=== PATIENT | male | born 1965 | race Caucasian/White ===

== ENCOUNTER 2024-02-16 10:44 | Inpatient (IN) | payer OTHER ==
[2024-02-16] MEDS ORDERED: HEPARIN SODIUM 1,000 UN/ML (10ML VL) IV PRN (10:52)
[2024-02-16] MEDS: NITROGLYCERIN SL TABS 0.4 MG TAB SUBLINGUAL STA ×3 (10:55→11:11)
[2024-02-16] MEDS: ASPIRIN 81 MG PO STA (10:55)
--- NOTE | 2024-02-16 10:57 | ED ---
General Adult HPI - General Chief complaint: Chest Pain Stated complaint: Chest Pain Time Seen by Provider: 02/16/24 10:47 Source: patient, EMS, RN notes reviewed, old records reviewed (EMS EKG) Mode of arrival: EMS Limitations: no limitations - History of Present Illness Initial comments: Patient is a pleasant 58-year-old male present to the emergency department with concerns for chest discomfort. Patient arrives via EMS. Patient states discomfort started around half an hour prior to arrival during emotional upset. Discomfort feels like heaviness that is severe. Discomfort improved to 4/10 following 1 nitroglycerin. Patient feels sweaty and has associated dyspnea. No nausea. Patient does have history of similar symptoms previously associated with heart attack and CABG. - Related Data Home Medications Medication Instructions Recorded Confirmed No Known Home Medications 02/16/24 02/16/24 Allergies Allergy/AdvReac Type Severity Reaction Status Date / Time No Known Allergies Allergy Verified 02/16/24 11:03 Review of Systems ROS Statement: Those systems with pertinent positive or pertinent negative responses have been documented in the HPI. ROS Other: All systems not noted in ROS Statement are negative. Constitutional: Denies: fever Eyes: Denies: eye pain ENT: Denies: ear pain Respiratory: Reports: as per HPI, dyspnea Cardiovascular: Reports: as per HPI, chest pain Musculoskeletal: Denies: back pain Past Medical History Past Medical History: Hyperlipidemia, Hypertension, Myocardial Infarction ([place]) Additional Past Surgical History / Comment(s): Quad bipass in 2008 Past Psychological History: No Psychological Hx Reported Smoking Status: Never smoker Past Alcohol Use History: None Reported Past Drug Use History: Marijuana General Exam Limitations: no limitations General appearance: alert Head exam: Present: normocephalic Eye exam: Present: normal appearance Neck exam: Present: normal inspection Respiratory exam: Present: normal lung sounds bilaterally. Absent: chest wall tenderness Cardiovascular Exam: Present: regular rate, normal rhythm Expanded Peripheral pulses: 2+: Radial (R), Radial (L), Posterior Tibialis (R), Posterior Tibialis (L) GI/Abdominal exam: Present: soft. Absent: tenderness Extremities exam: Present: normal inspection Neurological exam: Present: alert Psychiatric exam: Present: normal affect, normal mood Skin exam: Present: diaphoretic Course Vital Signs 02/16/24 02/16/24 02/16/24 10:46 11:06 11:07 Temperature 97.9 F Pulse Rate 90 92 Pulse Rate [ 88 Wheel Buffer ] Respiratory 22 18 Rate Blood Pressure 154/104 144/99 O2 Sat by Pulse 95 92 L Oximetry - Reevaluation(s) Reevaluation #1: 02/16/24 11:09 Patient reevaluated. Discomfort 01/25. Patient has had 3 nitroglycerin now. Paste will be applied. EKG Findings - EKG Results: EKG: interpreted by ERMD (Anterior lateral ST elevation), sinus rhythm, normal axis, normal QRS EKG shows: tachycardia Medical Decision Making - Medical Decision Making Was pt. sent in by a medical professional or institution (, PA, ENVIRONMENTAL COMMUNICATIONS SPECIALIST, urgent care, hospital, or detention...) When possible be specific @ -No Did you speak to anyone other than the patient for history (EMS, parent, family, police, friend...)? What history was obtained from this source @ -EMS provides history of transport including nitroglycerin Did you review nursing and triage notes (agree or disagree)? Why? @ -I reviewed and agree with nursing and triage notes Were old charts reviewed (outside hosp., previous admission, EMS record, old EKG, old radiological studies, urgent care reports/EKG's, detention records)? Report findings @ -EKG reviewed by EMS with concern for ST elevation Differential Diagnosis (chest pain, altered mental status, abdominal pain women, abdominal pain men, vaginal bleeding, weakness, fever, dyspnea, syncope, headache, dizziness, GI bleed, back pain, seizure, CVA, palpatations, mental health, musculoskeletal)? @ -Differential Chest Pain: Stable Angina, Unstable Angina, STEMI, NSTEMI Aortic Dissection, Pneumothorax, Musculoskeletal, Esophageal Spasm GERD, Cholecystitis, Pancreatitis, Zoster, this is not meant to be an all-inclusive list. EKG interpreted by me (3pts min.). @ -As above X-rays interpreted by me (1pt min.). @ -Chest x-ray interpreted by me as no acute abnormality. Postsurgical change CT interpreted by me (1pt min.). @ -None done U/S interpreted by me (1pt. min.). @ -None done What testing was considered but not performed or refused? (CT, X-rays, U/S, labs)? Why? @ -None What meds were considered but not given or refused? Why? @ -None Did you discuss the management of the patient with other professionals (professionals i.e. DrGoldy, PA, ENVIRONMENTAL COMMUNICATIONS SPECIALIST, lab, RT, psych nurse, drug abuse social worker, automatic spooler operator, teacher, compliance review officer, major case detective)? Give summary @ -Case discussed with Dr. Sky who will take patient to the [facility]. Case also discussed with Dr. hoffman who will admit covering hospital call Was smoking cessation discussed for >3mins.? @ -No Was critical care preformed (if so, how long)? @ -31 minutes critical care Were there social determinants of health that impacted care today? How? (Homelessness, low income, unemployed, alcoholism, drug addiction, transportation, low edu. Level, literacy, decrease access to med. care, [facility], rehab)? @ -No Was there de-escalation of care discussed even if they declined (Discuss DNR or withdrawal of care, Hospice)? DNR status @ -No What co-morbidities impacted this encounter? (DM, HTN, Smoking, COPD, CAD, Cancer, CVA, ARF, Chemo, Hep., AIDS, mental health diagnosis, sleep apnea, morb id obesity)? @ -Underlying coronary artery disease, hypertension and hypercholesterolemia Was patient admitted / discharged? Hospital course, mention meds given and route, prescriptions, significant lab abnormalities, going to OR and other pertinent info. @ -Patient improved with nitroglycerin following chest pain similar to previous [place]. Patient will be admitted. Patient to go to [facility]. Basic admission orders written. Heparin started. Undiagnosed new problem with uncertain prognosis? @ -No Drug Therapy requiring intensive monitoring for toxicity (Heparin, Nitro, Insulin, Cardizem)? @ -Heparin drip Were any procedures done? @ -No Diagnosis/symptom? @ -STEMI Acute, or Chronic, or Acute on Chronic? @ -Acute Uncomplicated (without systemic symptoms) or Complicated (systemic symptoms)? @ -Default Side effects of treatment? @ -No Exacerbation, Progression, or Severe Exacerbation? @ -No Poses a threat to life or bodily function? How? (Chest pain, [place], [place], pneumonia, PE, COPD, DKA, ARF, appy, cholecystitis, CVA, Diverticulitis, Homicidal, Suicidal, threat to staff... and all critical care pts) @ -No - Lab Data Result diagrams: 02/16/24 10:50 Lab Results 02/16/24 Range/Units 10:50 WBC 11.6 H (3.8-10.6) k/uL RBC 5.42 (4.30-5.90) m/uL Hgb 17.3 (13.0-17.5) gm/dL Hct 51.9 (39.0-53.0) % MCV 95.6 (80.0-100.0) fL MCH 32.0 (25.0-35.0) pg MCHC 33.4 (31.0-37.0) g/dL RDW 12.5 (11.5-15.5) % Plt Count 341 (150-450) k/uL MPV 8.1 Neutrophils % 62 % Lymphocytes % 30 % Monocytes % 5 % Eosinophils % 1 % Basophils % 1 % Neutrophils # 7.2 (1.3-7.7) k/uL Lymphocytes # 3.5 (1.0-4.8) k/uL Monocytes # 0.6 (0-1.0) k/uL Eosinophils # 0.1 (0-0.7) k/uL Basophils # 0.1 (0-0.2) k/uL Critical Care Time Critical Care Time: Yes Total Critical Care Time: 31 Disposition Clinical Impression: ST elevation myocardial infarction (STEMI) Disposition: ADMITTED IP TO THIS HOSP Condition: Critical Is patient prescribed a controlled substance at d/c from ED?: No Time of Disposition: 10:55
[2024-02-16] MEDS: HEPARIN SODIUM 1,000 UN/ML (10ML VL) IV ONE (10:58)
[2024-02-16] MEDS ORDERED: NITROGLYCERIN SL TABS 0.4 MG TAB SUBLINGUAL PRN (10:59)
[2024-02-16] MEDS: HEPARIN SOD,PORK IN 0.45% NACL 25,000 UNIT in 0.45% NACL 1 250ML.BAG IV SCH (11:01)
--- NOTE | 2024-02-16 11:08 | P.CRDCN ---
History of Present Illness Consult date: 02/16/24 History of present illness: HISTORY OF PRESENTING ILLNESS 58-year-old male with past medical history of CAD s/p CABG in 2009 done in [place] recently moved to [place]. For last 5 years he has not seen any physicians has not been on any medications. For last 1 week patient has been feeling under the weather, slightly fatigued and Low in energy. This morning he started having substernal chest pressure-like symptoms for which EMS was activated. EMS performed ECG which was showed ST elevations in anterolateral leads, sinus rhythm. Patient received sublingual nitroglycerin x 2 and 325 mg of aspirin which helped his symptoms and brought his chest pain down. On evaluation he is not showing signs of pulmonary congestion, no signs of fluid overload with normal JVD and no swelling in bilateral lower extremity. He is warm to touch. Systolic blood pressure 160s, diastolics 80s to 90s, heart rates 90s, sinus rhythm Patient denies any prior history of stroke, bleeding diathesis cancers or radiation therapy. He has not had any abdominal or chest surgeries other than bypass. He denies any allergy to contrast dye REVIEW OF SYSTEMS 14 point review of system is negative except what is mentioned above in HPI. PHYSICAL EXAMINATION Vital signs reviewed. Neck: Brisk carotid upstroke, no jugular venous distention. Lungs: Clear to auscultation. Heart: Regular rate and rhythm, S1-S2, no S3, no murmur or rub. Abdomen: Soft nontender, positive bowel sounds. Extremities: No edema, intact distal pulses. Neuro: Alert, oritented, no focal deficits. Detailed neuro exam was not performed. ASSESSMENT Anterolateral STEMI Apical and anteroapical wall hypokinesia CAD s/p CABG in 2008, [place]. Anatomy unknown, patient reports four-vessel bypass Noncompliant to medications Homeless, poor access to medical care Obesity Marijuana smoker Essential hypertension PLAN Plan for emergent cardiac catheterization procedure. Concerns of cardiogenic shock at this time. Bedside echo shows an EF of 45 to 50%, apical and anteroapical wall hypokinesia. Not sure if it is old or new. Patient is noted to be hypertensive at this time. He was not taking any cardiac medications including aspirin for last 5 years. Ravindra Sky MD, FACC, RPVI Thank you for allowing [facility] to participate in this patient's care. Feel free to reach out in case of any followup questions. Past Medical History Past Medical History: Hyperlipidemia, Hypertension, Myocardial Infarction ([place]) Additional Past Surgical History / Comment(s): Quad bipass in 2008 Past Psychological History: No Psychological Hx Reported Smoking Status: Never smoker Past Alcohol Use History: None Reported Past Drug Use History: Marijuana Medications and Allergies Home Medications Medication Instructions Recorded Confirmed Type No Known Home Medications 02/16/24 02/16/24 History Allergies Allergy/AdvReac Type Severity Reaction Status Date / Time No Known Allergies Allergy Verified 02/16/24 11:03 Physical Exam Vitals: Vital Signs Temp Pulse Resp BP Pulse Ox 02/16/24 10:46 97.9 F 90 22 154/104 95 Intake and Output 02/15/24 02/16/24 02/16/24 22:59 06:59 14:59 Other: Weight 113.5 kg Results Current Medications Generic Name Dose Route Start Last Admin Trade Name Freq PRN Reason Stop Dose Admin Aspirin 325 mg 02/17/24 09:00 Aspirin 325 Mg Tab PO DAILY [facility] Heparin Sodium (Porcine) 0 unit 02/16/24 10:52 Heparin Sodium 1,000 Un/Ml (10ml Vl) IV PER PROTOCOL PRN Low PTT Protocol Heparin Sodium/Sodium Chloride 250 mls @ 10 mls/hr 02/16/24 11:00 02/16/24 11:01 25,000 unit/ Sodium Chloride IV 8.8105 units/kg/hr .Q24H JABARI 10 mls/hr Administration Protocol 8.8105 UNITS/KG/HR Nitroglycerin 0.4 mg 02/16/24 10:59 Nitroglycerin Sl Tabs 0.4 Mg Tab SUBLINGUAL Q5M PRN Chest Pain Intake and Output 02/15/24 02/16/24 02/16/24 22:59 06:59 14:59 Other: Weight 113.5 kg Patient Weight 02/17/24 06:59 Weight 113.5 kg
[2024-02-16] MEDS: NITROGLYCERIN OINT 1 INCH/GM PACKET TOPICAL STA ×2 (11:11→11:13)
[2024-02-16 11:12] LABS: Basophils # (A) 0.1 k/uL (0-0.2); Basophils % (A) 1 %; Eosinophils # (A) 0.1 k/uL (0-0.7); Eosinophils % (A) 1 %; HCT 51.9 % (39.0-53.0); HGB 17.3 gm/dL (13.0-17.5); Lymphocytes # (A) 3.5 k/uL (1.0-4.8); Lymphocytes % (A) 30 %; MCHC 33.4 g/dL (31.0-37.0); MCV 95.6 fL (80.0-100.0); Mean Platelet Volume 8.1; Monocytes # (A) 0.6 k/uL (0-1.0); Monocytes % (A) 5 %; Neutrophils # (A) 7.2 k/uL (1.3-7.7); Neutrophils % (A) 62 %; Platelet Count 341 k/uL (150-450); RBC 5.42 m/uL (4.30-5.90); RDW 12.5 % (11.5-15.5); WBC 11.6 k/uL (3.8-10.6)
[2024-02-16 11:36] LABS: INR 0.9 (<1.2)
[2024-02-16] MEDS ORDERED: fentaNYL (PF) 50 MCG/ML 2 ML AMP ONE (11:36)
[2024-02-16] MEDS: LIDOCAINE 1% INJ 10MG/ML (20 ML MDV) SQ ONE ×2 (11:36→11:42)
[2024-02-16 11:37] LABS: Partial Thromboplastin Time 23.4 sec (22.0-30.0); Prothrombin Time 10.4 sec (10.0-12.5)
--- NOTE | 2024-02-16 11:39 | XR ---
EXAMINATION TYPE: XR chest 1V portable DATE OF EXAM: 02/16/2024 COMPARISON: None INDICATION: Chest pain TECHNIQUE: Single frontal view of the chest is obtained. FINDINGS: The heart size is normal. The pulmonary vasculature is normal. The lungs are clear. Sternotomy wires are in the midline. IMPRESSION: 1. No acute pulmonary process.
[2024-02-16] MEDS: MIDAZOLAM 2 MG/2 ML VIAL IVP ONE ×2 (11:40→12:55)
[2024-02-16] MEDS: fentaNYL (PF) 50 MCG/ML 2 ML AMP IVP ONE ×2 (11:40→12:30)
[2024-02-16 11:47] LABS: ALT 64 U/L (4-49); AST 48 U/L (17-59); African American GFR (CKD) 81 (>60 ml/min/1.73 sqM); Albumin 4.7 g/dL (3.5-5.0); Alkaline Phosphatase 113 U/L (38-126); Anion Gap 17 mmol/L; Blood Urea Nitrogen 18 mg/dL (9-20); Calcium 9.4 mg/dL (8.4-10.2); Carbon Dioxide 13 mmol/L (22-30); Chloride 108 mmol/L (98-107); Glucose 153 mg/dL (74-99); Magnesium 1.9 mg/dL (1.6-2.3); Non-African American GFR(CKD) 70 (>60 ml/min/1.73 sqM); Potassium 3.8 mmol/L (3.5-5.1); Sodium 138 mmol/L (137-145); Total Bilirubin 1.5 mg/dL (0.2-1.3); Total Protein 7.9 g/dL (6.3-8.2)
[2024-02-16] MEDS ORDERED: HEPARIN SODIUM 1,000 UN/ML (10ML VL) ONE (11:50)
[2024-02-16] MEDS: HEPARIN SODIUM 1,000 UN/ML (10ML VL) IVP ONE ×3 (11:52→12:57)
[2024-02-16] MEDS ORDERED: TICAGRELOR 90 MG TAB ONE (11:59)
[2024-02-16] MEDS: TICAGRELOR 90 MG TAB PO ONE (12:05)
[2024-02-16] MEDS: TIROFIBAN 12.5MG-250ML NS 250 ML IV ONE ×2 (12:15→12:25)
[2024-02-16] MEDS: DEXTROSE 5% IN WATER 100 ML with AMIODARONE 150 MG IV ONE (12:15)
[2024-02-16] MEDS: niCARdipine Syringe (1,000 mcg/10 mL) INTRACORON ONE ×4 (12:28→12:36)
[2024-02-16] MEDS: SODIUM CHLORIDE 0.9% 1,000 ML in EMPTY BAG 1 BAG IV SCH (12:30)
[2024-02-16] MEDS: IV FLUID CONTINUATION 700 ML IV ONE (12:35)
[2024-02-16] MEDS: SODIUM CHLORIDE 0.9% 1,000 ML IV ONE (12:50)
[2024-02-16] MEDS ORDERED: MAG HYDROX/AL HYDROX/SIMETH 30 ML CUP PO PRN (13:17)
[2024-02-16] MEDS ORDERED: RX INFO: IV CONTRAST WAS GIVEN 1 EACH MISC MISCELLANE PRN (13:17)
[2024-02-16] MEDS ORDERED: ATROPINE SULFATE 0.1 MG/ML 10ML SYRINGE IV PRN (13:17)
--- NOTE | 2024-02-16 13:17 | P.PRCINT ---
Percutaneous Coronary Int. - Percutaneous Coronary Intervention Percutaneous Coronary Intervention: PROCEDURES PERFORMED: SVG to diagonal, SMITH to LAD angiography, PCI SVG to diagonal with a 3.25 x 23mm Xience IFTIKHAR at the mid and 3.5 x 12mm Xience IFTIKHAR at the proximal portion, IVUS SVG to diagonal, Penumbra aspiration thrombectomy SVG to diagonal INDICATION: STEMI CONSENT:I have discussed the risks, benefits and alternative therapies for the above-mentioned procedure and for both sedation/analgesia as well as necessary blood product administration, if indicated, as they pertain to this patient. The patient has indicated understanding and acceptance of the risks and procedures discussed. PROCEDURE: After the risks, benefits and alternatives of the above mentioned procedure explained in detail with the patient, informed consent was obtained. Patient was taken to the catheterization lab and prepped and draped in usual fashion. A 6-Austrian sheath had previously been placed in the right femoral artery. Left coronary angiography was subselective and appeared to be occluded and right coronary angiography showed diffuse disease with occluded SVG to PDA. The SVG to diagonal had dye hang up and appeared to be the culprit vessel. The decision was made to perform PCI of the SVG to diagonal branch. A 6-Austrian AL 0.75 guide was used think each the SVG. A 0.014 BMW wire was advanced in the distal SVG. Penumbra aspiration thrombectomy was performed. This did improve some antegrade flow and therefore a spider 4.0 distal embolic protection device was deployed in the distal vessel. Next balloon angioplasty was performed with a 3.0 x 12 mm balloon. Next a 3.25 x 23 mm Xience IFTIKHAR was placed in the mid SVG to diagonal. There was more proximal disease which may been the culprit just prior to an aneurysmal vein valve. The decision was made to perform stenting of this area as well. A 3.5 x 12 mm Xience IFTIKHAR was placed. There was no reflow. This was treated with Aggrastat as well as intravascular nicardipine. The spider embolic protection device was removed with some thrombus noted. MAN was performed of the proximal portion of the stent which appeared well expanded however unable to advance more distally. Final angiograms showed improvement in flow to JOSHUA 2-3 and patient not having any chest pain and therefore remainder of thrombus, no reflow felt best treated medically with Aggrastat. Preintervention there was 100% stenosis and JOSHUA 0 flow and postintervention there was less than 10% stenosis with JOSHUA 2 flow. There was likely another SVG to OM however given contrast threshold this was not performed and aortogram was not performed. A SMITH to LAD angiogram was performed which showed diffuse disease more distally of the LAD. The right femoral angiogram showed adequate anatomy and an Angioseal was placed with hemostasis achieved. The patient tolerated the procedure well. Patient was transported back to the post catheterization holding area in stable condition. Conscious Sedation: Patient was monitored under the direct supervision of myself for conscious sedation using Versed and fentanyl for a total duration of 56 minutes HEMODYNAMICS: Ao: 158/100 SELECTIVE CORONARY ARTERIOGRAPHY: LEFT MAIN: subselevticely imaged however appears occluded LEFT ANTERIOR DESCENDING CORONARY ARTERY: subselevticely imaged however appears occluded LEFT CIRCUMFLEX CORONARY ARTERY: subselevticely imaged however appears occluded RIGHT CORONARY ARTERY: The RCA was imaged during diagnostic portion with diffuse diseaseof the entire RCA including 90% mid, proximal and distal stenosis. SVG to PDA: From diagnostic imaging occluded SVG to diagonal: 100% stenosis SMITH to LAD: Patent with mid to distal LAD 90% stenosis FINAL IMPRESSION: 1. [place] CAD as described above with what appears to be 100% left main stenosis and RCA 90% stenosis 2. Occluded SVG to PDA, 100% SVG to diagonal which was the culprit vessel, patent SMITH to LAD however more distal 90% LAD stenosis. SVG to OM not imaged 3. Status post PCI SVG to diagonal with a 3.25 x 23mm Xience IFTIKHAR at the mid and 3.5 x 12mm Xience IFTIKHAR at the proximal portion PLAN: 1. Aggressive risk factor modification per most recent ACC/AHA guidelines. 2. Continue dual antiplatelets with aspirin and Brillinta for 12 months 3. If more angina consider repeat angiogram or CTA to further assess any patency of SVG to OM or other grafts. Obtain prior operative report 4. RCA with diffuse disease. Patient will need stenting of the entire RCA and only consider if patient is compliant with significant history of noncompliance for last 5 years.
[2024-02-16 13:22] LABS: Glucose,Whole Blood 144 mg/dL (70-110)
[2024-02-16] MEDS: IOPAMIDOL-370 100ML BTL INJ ONE ×2 (13:37)
[2024-02-16] MEDS: lisinopriL 10 MG TAB PO SCH (14:19)
[2024-02-16] MEDS: METOPROLOL TARTRATE 25 MG TAB PO SCH (14:19)
[2024-02-16] MEDS ORDERED: TEMAZEPAM 15 MG CAP PO PRN (14:51)
[2024-02-16] MEDS ORDERED: hydrALAZINE HCL 20 MG/ML 1 ML VIAL IVP PRN (14:51)
[2024-02-16] MEDS ORDERED: ACETAMINOPHEN TAB 500 MG TAB PO PRN (14:51)
[2024-02-16 16:45] LABS: Appearance,Urine Clear (Clear); Bilirubin,Urine Negative (Negative); Blood,Urine Negative (Negative); Color,Urine Colorless; Glucose,Urine (UA) Negative (Negative); Ketones,Urine 1+ (Negative); Leukocyte Esterase,Urine Negative (Negative); Nitrite,Urine Negative (Negative); Protein,Urine Negative (Negative); Specific Gravity,Urine 1.022 (1.001-1.035); Urobilinogen,Urine <2.0 mg/dL (<2.0)
[2024-02-16] MEDS: amLODIPine 5 MG TAB PO SCH (18:05)
[2024-02-16] MEDS: ONDANSETRON 4 MG/2 ML VIAL IVP PRN (18:18)
[2024-02-16] MEDS: METOCLOPRAMIDE 5 MG/ML 2 ML VIAL IVP STA (19:34)
--- NOTE | 2024-02-16 19:53 | P.CARDCATH ---
Date of Procedure: 02/16/24 Description of Procedure: DIAGNOSTIC CORONARY ANGIOGRAPHY and LEFT HEART CATH REPORT PROCEDURES PERFORMED: Left heart catheterization Selective coronary angiography Bypass graft injection Moderate conscious sedation 24 mins Right common femoral access Right common femoral arteriogram INDICATION: Anterolateral STEMI 58-year-old prior history of CABG 2009 in [place], not following up with physician in last 5 years, not on any medications not even aspirin, history of type 2 diabetes, hypertension dyslipidemia CAD, marijuana smoking. He presented to the hospital because of substernal chest pressure symptoms that started today around 10 AM. His ECG showed anterolateral ST elevations with ST elevation extensions in 1 and aVL. Rhythm was sinus rhythm CONSENT: I have discussed the risks, benefits and alternative therapies for the above-mentioned procedure, sedation/analgesia and necessary blood product administration (if indicated, as they pertain to this patient). The patient has indicated understanding and acceptance of the risks and procedures discussed. Conscious Sedation: Patient's ECG, heart rate, blood pressure, pulse oximetry was monitored throughout the duration of procedure under the direct supervision. 2 mg Versed and 502 mg Fentanyl were used for induction of moderate conscious sedation. Total duration of 24 minutes. PROCEDURE:After the risks, benefits and alternatives of the above mentioned procedure explained in detail with the patient, informed consent was obtained. Patient was taken to the catheterization lab and prepped and draped in usual sterile fashion. Ultrasound was used to identify the right common femoral artery. 1% lidocaine was infiltrated over the right common femoral artery. Using ultrasound arterial access was obtained using micropuncture needle. A 6-Divehi sheath was placed in the right coomon femoral artery using modified Seldinger technique. J tipped wire was advanced under fluoroscopic guidance. The J-wire could not be advanced in the ascending aorta. The J-tip wire was removed and a Glidewire was used which was advanced under fluoroscopy to the ascending aorta. Over the Glidewire JL 4 diagnostic catheter was advanced to the aortic root. This catheter work could not opacify or engage the left coronary ostium. This catheter was exchanged for a JL 4.5 diagnostic catheter. This catheter could not selectively engage the left coronary ostium. Left coronary cusp angiogram was performed which did not show any opacification of the left main suggestive of MAP MAKER of left main ostium. The catheter was exchanged over the wire to JR4 diagnostic catheter. The catheter was manipulated to selectively engage the right coronary ostium. Right coronary angiogram was performed in different angiographic projections. The catheter was disengaged to selectively engage the right vein graft to PDA. Injection showed occlusion of the right vein graft. The catheter was disengaged and manipulated to selectively engage the vein graft to diagonal artery which was aneurysmally dilated in proximal segment and 100% occluded with thrombus. Based on the ECG findings with anterolateral STEMI, vein graft to diagonal seems to the culprit vessel. Decision was made to proceed for emergent vein graft to diagonal prevention with Dr. Arguello. JR4 diagnostic catheter was withdrawn over the wire and the J-wire was left in the aortic root. Hemodynamics Aortic pressure 154 over 74 mmHg SELECTIVE CORONARY ARTERIOGRAPHY: LEFT MAIN: Did not opacify on left coronary cusp injection, likely suggestive of left main MAP MAKER. RIGHT CORONARY ARTERY: Dominant vessel. Diffusely ectatic and diffusely diseased vessel approximately 6 mm in diameter in ectatic segments. Proximal RCA has 85 to 90% disease. Mid RCA has 80 to 90% stenosis. Distal RCA just prior to bifurcation into PDA and PL branch has 40 to 50% tubular disease. 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 Faint collaterals from PDA to LAD are seen. CABG grafts SVG to PDA, 100% occluded with stump seen SVG to diagonal, 100% occluded with dye hanging in proximal segment. Mild aneurysmal dilatation of proximal vein graft. This appears to be the culprit vessel. SVG to OM could not be identified IMPRESSION: 100% occluded SVG to diagonal with aneurysmal dilatation of proximal segment with dye hanging, likely culprit vessel 100% occluded SVG to PDA Diffusely ectatic RCA, severe proximal RCA disease Suspect occluded left main PLAN: Plan for emergent PCI of SVG to diagonal SMITH angiogram will be performed after intervention. Performing Physician Ravindra Sky MD [facility], RPVI Thank you for allowing [facility] to participate in this patient's care. Feel free to reach out in case of any followup questions. 2
[2024-02-16 20:04] LABS: HCT 47.6 % (39.0-53.0); HGB 16.3 gm/dL (13.0-17.5); MCH 32.6 pg (25.0-35.0); MCHC 34.3 g/dL (31.0-37.0); MCV 95.1 fL (80.0-100.0); Mean Platelet Volume 7.8; Platelet Count 282 k/uL (150-450); RBC 5.01 m/uL (4.30-5.90); RDW 12.4 % (11.5-15.5); WBC 15.7 k/uL (3.8-10.6)
[2024-02-16] MEDS: TICAGRELOR 90 MG TAB PO SCH (20:44)
[2024-02-16] MEDS: ATORVASTATIN 80 MG TAB PO SCH (20:44)
[2024-02-16] MEDS: PANTOPRAZOLE 40 MG/10 ML VIAL IVP SCH (20:44)
[2024-02-16] MEDS: ZOLPIDEM 5 MG TAB PO PRN (20:48)
--- NOTE | 2024-02-16 21:35 | HP ---
HISTORY AND PHYSICAL CHIEF COMPLAINT: Chest pain. HISTORY OF PRESENT ILLNESS: This is a 58-year-old gentleman with a past medical history of myocardial infarction, hypertension, hyperlipidemia, who is noncompliant because of lack of job and homelessness. Currently, he is complaining of severe chest pain in the anterior part of the chest. The patient came to [facility]. Troponin is normal, but however, the patient had extensive ST-T changes in the anterior leads. The patient underwent cardiac catheterization and stenting of the multiple vessels including SVG to PDA and SVG to diagonal and SMITH to LAD. The patient is admitted for further evaluation and treatment. There is no history of any fever, rigors, or chills. PAST MEDICAL HISTORY: History of CAD, CABG, hypertension, hyperlipidemia. Rest of the chart and rest of the history is reviewed. HOME MEDICATIONS: None. ALLERGIES: None. FAMILY HISTORY: No history of heart disease or strokes in the family. SOCIAL HISTORY: History of THC. REVIEW OF SYSTEMS: A 14-point review is negative except as mentioned earlier. PHYSICAL EXAMINATION: VITAL SIGNS: Pulse is 86, blood pressure 144/99, respirations 19. HEENT: Conjunctivae normal. NECK: No JVD. CARDIOVASCULAR: S1, S2 muffled. RESPIRATIONS: Breath sounds diminished at the bases. No rhonchi. No crackles. ABDOMEN: Soft, nontender. LEGS: No edema. NERVOUS SYSTEM: Nonfocal. SKIN: No ulcer, rash, bleeding. JOINTS: No active deforming arthropathy. LABORATORY DATA: CO2 is 13. Bilirubin is 1.5. ASSESSMENT: 1. Acute [id number] elevation myocardial infarction, status post cardiac arrest and stenting of the multivessel. 2. History of coronary artery disease, cerebrovascular accident. 3. Hypertension. 4. Hyperlipidemia. 5. History of noncompliance. RECOMMENDATIONS AND DISCUSSION: This is a 58-year-old gentleman, who presented after acute myocardial infarction. At this time, I would recommend to continue current medications. Continue with antiplatelet agents. Continue with Lipitor. Continue with beta blockers. We will monitor the patient closely and we will consult Social Work for the complaint situation. Otherwise, prognosis guarded. Further recommendations to follow. See orders for further details. Closely follow with Cardiology. The patient will be monitored in ICU. MMODL / IJN: [id number] /
[2024-02-17] MEDS: ALPRAZolam 0.25 MG TAB PO PRN (01:03)
[2024-02-17 04:01] LABS: Basophils % (A) 0 %; Eosinophils % (A) 0 %; HCT 48.3 % (39.0-53.0); HGB 16.3 gm/dL (13.0-17.5); Lymphocytes # (A) 1.8 k/uL (1.0-4.8); Lymphocytes % (A) 13 %; MCHC 33.7 g/dL (31.0-37.0); MCV 94.8 fL (80.0-100.0); Mean Platelet Volume 8.2; Monocytes # (A) 0.8 k/uL (0-1.0); Monocytes % (A) 5 %; Neutrophils # (A) 11.8 k/uL (1.3-7.7); Neutrophils % (A) 81 %; Platelet Count 302 k/uL (150-450); RBC 5.09 m/uL (4.30-5.90); RDW 12.9 % (11.5-15.5); WBC 14.6 k/uL (3.8-10.6)
[2024-02-17 04:18] LABS: African American GFR (CKD) >90 (>60 ml/min/1.73 sqM); Anion Gap 11 mmol/L; Blood Urea Nitrogen 15 mg/dL (9-20); Calcium 9.2 mg/dL (8.4-10.2); Carbon Dioxide 18 mmol/L (22-30); Chloride 109 mmol/L (98-107); Glucose 116 mg/dL (74-99); Non-African American GFR(CKD) 80 (>60 ml/min/1.73 sqM); Potassium 3.9 mmol/L (3.5-5.1); Sodium 138 mmol/L (137-145)
[2024-02-17] MEDS ORDERED: PANTOPRAZOLE 40 MG TABLET PO SCH (07:30)
[2024-02-17] MEDS: ASPIRIN 81 MG PO SCH (08:32)
[2024-02-17] MEDS: lisinopriL 20 MG TAB PO SCH (08:32)
[2024-02-17] MEDS ORDERED: ASPIRIN 325 MG TAB PO SCH (09:00)
[2024-02-17] MEDS: ISOSORBIDE MONONITRATE ER 30 MG TAB.ER.24H PO SCH (10:37)
[2024-02-17 12:02] VITALS: BMI 35.6
[2024-02-17 12:10] LABS: Chol/HDL Ratio 6.65 Ratio; LDL Cholesterol,Calculated 164.6 mg/dL (0.0-131.0)
--- NOTE | 2024-02-17 13:34 | CA ---
Transthoracic Echo Report Name: Duong Lay Age: 58 Gender: M : 1965 Exam Date: 02/17/2024 07:49 Exam Location: [place] [facility] Ht (in): 60 Wt (lb): 250 Ordering Physician: Ravindra Sky MD ([id number]) Attending/Referring Phys: Teacher Assistant Nadia Sifuentes RDCS Procedure CPT: Indications: stemi Cardiac Hx: Technical Quality: Technically difficult study Contrast 1: Definity Total Dose (mL): 3 Contrast 2: Total Dose (mL): MEASUREMENTS (Male / Female) Normal Values 2D ECHO LV Diastolic Diameter PLAX 3.3 cm 4.2 - 5.9 / 3.9 - 5.3 cm LV Systolic Diameter PLAX 2.5 cm IVS Diastolic Thickness 1.2 cm 0.6 - 1.0 / 0.6 - 0.9 cm LVPW Diastolic Thickness 1.3 cm 0.6 - 1.0 / 0.6 - 0.9 cm LV Relative Wall Thickness 0.8 Aortic Root Diameter 3.8 cm LA Systolic Diameter LX 3.3 cm 3.0 - 4.0 / 2.7 - 3.8 cm DOPPLER AV Peak Velocity 99.1 cm/s AV Peak Gradient 3.9 mmHg AV Mean Velocity 70.3 cm/s AV Mean Gradient 2.2 mmHg AV Velocity Time Integral 13.3 cm LVOT Peak Velocity 81.3 cm/s LVOT Peak Gradient 2.6 mmHg LVOT Velocity Time Integral 12.0 cm Mitral E Point Velocity 38.3 cm/s Mitral A Point Velocity 96.9 cm/s Mitral E to A Ratio 0.4 MV Deceleration Time 163.6 ms MV E' Velocity 4.3 cm/s Mitral E to MV E' Ratio 9.0 PV Peak Velocity 71.8 cm/s PV Peak Gradient 2.1 mmHg FINDINGS Left Ventricle Left ventricular ejection fraction is estimated at 35-40 %. Mild concentric left ventricular hypertrophy. Global left ventricular hypokinesis. [place] appears to be akinetic/ dyskentic. Right Ventricle Normal right ventricular size. Right Atrium Normal right atrial size. Left Atrium Normal left atrial size. Mitral Valve Trace mitral regurgitation. Aortic Valve No aortic valve stenosis or regurgitation. Tricuspid Valve Trace tricuspid regurgitation. Pulmonic Valve No pulmonic regurgitation. Pericardium No pericardial effusion. Aorta Aorta at upper limits of normal measuring 3.5-3.8cm CONCLUSIONS Left ventricular EF 35-40% Mild increased left ventricular wall thickness Predominantly apical akinesis/dyskinesis Trace mitral regurgitation No pericardial effusion Previewed by: Dr. Rashad Arguello DO (Electronically Signed) Final Date: 17 February 2024 13:33
[2024-02-17] MEDS: ALPRAZolam 0.5 MG TAB PO PRN (14:23)
--- NOTE | 2024-02-17 21:48 | PN ---
PROGRESS NOTE Duong is a 58-year-old gentleman with history of coronary artery disease, status post prior bypass surgery, who is homeless and had not been taking any of his medications. He presented to hospital with acute myocardial infarction. He underwent emergent cardiac catheterization and underwent angioplasty with stent placement of venous graft to chaparro with a XIENCE stent placement. This morning, he is pain free, hemodynamically stable, and in no apparent distress. LAB: Showed that the troponin is 12.4. Potassium is 3.9, creatinine is 1. Hemoglobin is 16.3. MEDICATIONS: He is on all appropriate medications including, 1. Aspirin. 2. Brilinta. 3. Lipitor. 4. Imdur. 5. Zestril. 6. Lopressor. PHYSICAL EXAM: GENERAL: Comfortable at rest. VITAL SIGNS: Stable. NECK: There is no jugular venous distention. CHEST: Reveals good air entry bilaterally. HEART: Reveals first and second heart sounds. No gallop. No murmur. ABDOMEN: Soft, nontender. EXTREMITIES: Did not reveal any edema. Peripheral pulses are felt. ASSESSMENT AND PLAN: Acute anterior wall myocardial infarction, status post catheterization and angioplasty. PLAN: I will continue him on his current medications. Transfer him out of ICU. I will follow the echo results once they are available. MMODL / IJN: [id number] /
--- NOTE | 2024-02-18 10:24 | PN ---
PROGRESS NOTE DATE OF SERVICE: 02/17/2024 SUBJECTIVE: This is a 58-year-old gentleman, who was admitted after acute ST-segment elevation myocardial infarction. He had cardiac arrest and stenting also. The patient had history of noncompliance. A 2D echo with Doppler showed ejection fraction of 35% to 40% and as well as hypokinesia. No chest pain. No palpitations. No fever. OBJECTIVE: VITAL SIGNS: On exam, pulse is 114, blood pressure is 91/72, and respirations 24. CHEST: Clear to auscultation. ABDOMEN: Soft. NERVOUS SYSTEM: Nonfocal. LABORATORY DATA: Troponin is 12.400. The cholesterol is 222. ASSESSMENT: 1. Acute ST-segment elevation myocardial infarction, status post cardiac catheterization and stenting. 2. Congestive heart failure with chronic systolic dysfunction, ejection fraction 35% to 40%, distal wall motion abnormalities. 3. History of coronary artery disease and cerebrovascular accident. 4. Hypertension. 5. Hyperlipidemia. 6. History of noncompliance. RECOMMENDATIONS: Recommend to continue current management and symptomatic treatment. Otherwise, continue with antiplatelet agents, continue with Lipitor 80, and continue the rest of medications. Importance of compliance is recommended and closely with Cardiology. Prognosis guarded. Further recommendations to follow. MMODL / IJN: [id number] /
--- NOTE | 2024-02-18 12:25 | P.PN ---
Subjective HISTORY OF PRESENT ILLNESS: Patient is status post right catheterization with PCI of the SVG to diagonal. Patient was transferred out of the intensive care unit to the cardiac stepdown unit yesterday. Patient examined this morning at the bedside. Patient currently denies any chest pain or pressure. He denies any shortness of breath. Echocardiogram completed revealing ejection fraction 35 to 40%. PHYSICAL EXAM: VITAL SIGNS: Reviewed. GENERAL: Well-developed in no acute distress. NECK: Supple. No JVD or thyromegaly LUNGS: Respirations even and unlabored. Lungs essentially clear to auscultation bilaterally. HEART: Regular rate and rhythm. S1 and S2 heard. EXTREMITIES: Normal range of motion. No clubbing or cyanosis. Peripheral p ulses intact. No lower extremity edema ASSESSMENT: STEMI, status post PCI of the SVG to diagonal Coronary artery disease with previous CABG in 2008 Ischemic cardiomyopathy, EF 35 to 40% Hypertension Marijuana use Morbid obesity: BMI 35.7 Medication noncompliance Homelessness PLAN: Continue current cardiac medications Add Aldactone 25 mg daily Continue to monitor patient for an additional 24 hours Anticipate discharge home tomorrow if patient remains stable He is to follow-up postdischarge with Dr. Sky Nurse practitioner note has been reviewed by physician. Signing provider agrees with the documented findings, assessment, and plan of care documented by AVIONICS SYSTEMS INTEGRATION SPECIALIST as a scribe. Objective - Vital Signs Vital signs: Vital Signs Temp 98.1 F 02/18/24 08:00 Pulse 84 02/18/24 08:00 Resp 16 02/18/24 08:00 BP 114/78 02/18/24 08:00 Pulse Ox 96 02/18/24 08:00 FiO2 Intake & Output 02/17/24 02/18/24 02/18/24 18:59 06:59 18:59 Intake Total 120 476 Output Total 575 Balance -575 120 476 Weight 112.7 kg Intake: Oral 120 476 Output: Urine 575 Other: Voiding Method Urinal Urinal # Voids 0 2 # Bowel Movements 1 - Labs CBC & Chem 7: 02/17/24 03:36 02/17/24 03:36
[2024-02-18] MEDS: SPIRONOLACTONE 25 MG TAB PO SCH (13:29)
--- NOTE | 2024-02-18 18:11 | P.PN ---
Subjective Progress Note Date: 02/18/24 Patient is status post cardiac catheterization which reveals 100% occlusion in the SVG to diagonal with aneurysmal dilation of proximal segment with dye hanging, and also 100% occlusion of the SVG to PDA. severe proximal RCA disease. Patient had stent performed of the SVG to diagonal. Has been started on aspirin and brilinta. Noted that patient has not followed up with a medical doctor in the last 5 years and [place] Patient will follow up with Dr. Sky and will be referred to a PCP for follow up. He is currently chest pain free. Review of Systems Constitutional: Denied any fatigue denied any fever. Cardio vascular: denied any chest pain, palpitations Gastrointestinal: denied any nausea, vomiting, diarrhea Pulmonary: Denied any shortness of breath cough Neurologic denied any new focal deficits All inpatient medications were reviewed and appropriate changes in these medications as dictated in the interval history and assessment and plan. PHYSICAL EXAMINATION: GENERAL: The patient is alert and oriented x3, not in any acute distress. Well developed, well nourished. HEENT: Pupils are round and equally reacting to light. EOMI. No scleral icterus. No conjunctival pallor. Normocephalic, atraumatic. No pharyngeal erythema. No thyromegaly. CARDIOVASCULAR: S1 and S2 present. No murmurs, rubs, or gallops. PULMONARY: Chest is clear to auscultation, no wheezing or crackles. ABDOMEN: Soft, nontender, nondistended, normoactive bowel sounds. No palpable organomegaly. MUSCULOSKELETAL: No joint swelling or deformity. EXTREMITIES: No cyanosis, clubbing, or pedal edema. NEUROLOGICAL: Gross neurological examination did not reveal any focal deficits. SKIN: No rashes. Assessment and Plan Acute STEMI with prior coronary bypass. Status post PCI started on dual antiplatelet therapy. Ischemic cardiomyopathy, EF 35-40%, patient has been started on aldactone. Leukocytosis reactive History of coronary artery disease with prior coronary bypass non compliant with outpatient medications History of stroke Hypertension Hyperlipidemia Anxiety/Depression not a current issue Obesity Former Smoker GI prophylaxis DVT prophylaxis Full Code Patient will be monitored overnight on the school bus monitor and recommending discharge home in the next 24 hours. The impression and plan of care has been dictated by Alicia oMlina Nurse Practitioner as directed. Dr. Lea MD I have performed a history and physical examination and medical decision making of this patient, discussed the same with the dictator, and agree with the dictators assessment and plan as written, documented as a scribe. Based on total visit time, I have performed more than 50% of this visit. Just leave the kinetic sand along Objective - Vital Signs Vital signs: Vital Signs Temp 98.3 F 02/18/24 16:00 Pulse 90 02/18/24 16:00 Resp 20 02/18/24 16:00 BP 95/59 02/18/24 16:00 Pulse Ox 96 02/18/24 16:00 FiO2 Intake & Output 02/17/24 02/18/24 02/18/24 18:59 06:59 18:59 Intake Total 120 1252 Output Total 575 Balance -476 171 6437 Weight 112.7 kg Intake: Oral 120 1252 Output: Urine 575 Other: Voiding Method Urinal Urinal # Voids 0 2 # Bowel Movements 1 - Labs CBC & Chem 7: 02/17/24 03:36 02/17/24 03:36 Assessment and Plan Time with Patient: Less than 30
[2024-02-19 08:34] VITALS: TEMP 97.8
--- NOTE | 2024-02-19 11:01 | P.PN ---
Subjective HISTORY OF PRESENT ILLNESS: Patient is status post right catheterization with PCI of the SVG to diagonal. Patient was transferred out of the intensive care unit to the cardiac stepdown unit yesterday. Patient examined this morning at the bedside. Patient currently denies any chest pain or pressure. He denies any shortness of breath. Echocardiogram completed revealing ejection fraction 35 to 40%. 02/19/2024 Patient examined this morning. He is sitting up in the chair. He currently denies chest pain or pressure. He denies shortness of breath. Vital signs are stable. PHYSICAL EXAM: VITAL SIGNS: Reviewed. GENERAL: Well-developed in no acute distress. NECK: Supple. No JVD or thyromegaly LUNGS: Respirations even and unlabored. Lungs essentially clear to auscultation bilaterally. HEART: Regular rate and rhythm. S1 and S2 heard. EXTREMITIES: Normal range of motion. No clubbing or cyanosis. Peripheral pulses intact. No lower extremity edema ASSESSMENT: STEMI, status post PCI of the SVG to diagonal Coronary artery disease with previous CABG in 2008 Ischemic cardiomyopathy, EF 35 to 40% Hypertension Marijuana use Morbid obesity: BMI 35.7 Medication noncompliance Homelessness PLAN: Continue current cardiac medications Case management to check coverage for Brilinta. If this is not covered, will change patient to Plavix Patient will be discharged home this afternoon from a cardiac standpoint He is to follow-up postdischarge with Dr. Sky Nurse practitioner note has been reviewed by physician. Signing provider agrees with the documented findings, assessment, and plan of care documented by TANNING WHEEL OPERATOR as a scribe. Objective - Vital Signs Vital signs: Vital Signs Temp 97.8 F 02/19/24 08:17 Pulse 99 02/19/24 08:17 Resp 16 02/19/24 08:17 BP 129/62 02/19/24 08:17 Pulse Ox 97 02/19/24 08:17 FiO2 Intake & Output 02/18/24 02/19/24 02/19/24 18:59 06:59 18:59 Intake Total 1909 908 Balance 1909 908 Intake: IV 10 Invasive Line 3 10 Oral 1909 898 Other: Voiding Method Urinal Urinal # Bowel Movements 1 - Labs CBC & Chem 7: 02/17/24 03:36 02/17/24 03:36
[2024-02-19] MEDS: CLOPIDOGREL 75 MG TAB PO STA (11:56)
[2024-02-19 12:35] VITALS: BP 120/65; PULSE 96; RESP 18
[2024-02-20] MEDS ORDERED: CLOPIDOGREL 75 MG TAB PO SCH ×2 (09:00)
== END 2024-02-19 14:51 | disposition home or self-care (01) | DRG 321 ==
LOC: EC 10:44 → 2SICU 11:00 → 3SCARD 02-17 21:48
PROVIDERS: ADMIT Internal Medicine; ATTEND Internal Medicine
PROC: 3E073PZ Introduction of Platelet Inhibitor into Coronary Artery, Percutaneous Approach (ICD-10-PCS; principal; 2024-02-16 11:19)
PROC: 02C03ZZ Extirpation of Matter from Coronary Artery, One Artery, Percutaneous Approach (ICD-10-PCS; principal; 2024-02-16 11:19)
PROC: 027035Z Dilation of Coronary Artery, One Artery with Two Drug-eluting Intraluminal Devices, Percutaneous Approach (ICD-10-PCS; principal; 2024-02-16 11:19)
PROC: B240ZZ3 Ultrasonography of Single Coronary Artery, Intravascular (ICD-10-PCS; principal; 2024-02-16 11:19)
PROC: B2111ZZ Fluoroscopy of Multiple Coronary Arteries using Low Osmolar Contrast (ICD-10-PCS; 2024-02-16 11:19)
PROC: B41F1ZZ Fluoroscopy of Right Lower Extremity Arteries using Low Osmolar Contrast (ICD-10-PCS; 2024-02-16 11:19)
PROC: B2131ZZ Fluoroscopy of Multiple Coronary Artery Bypass Grafts using Low Osmolar Contrast (ICD-10-PCS; 2024-02-16 11:19)
PROC: 4A023N7 Measurement of Cardiac Sampling and Pressure, Left Heart, Percutaneous Approach (ICD-10-PCS; 2024-02-16 11:19)
DX: T82.867A Thrombosis due to cardiac prosthetic devices, implants and grafts, initial encounter (principal); I21.09 ST elevation (STEMI) myocardial infarction involving other coronary artery of anterior wall; I25.810 Atherosclerosis of coronary artery bypass graft(s) without angina pectoris; I50.22 Chronic systolic (congestive) heart failure; Z59.01 Sheltered homelessness; I11.0 Hypertensive heart disease with heart failure; E11.9 Type 2 diabetes mellitus without complications; E66.01 Morbid (severe) obesity due to excess calories; Z68.35 Body mass index [BMI] 35.0-35.9, adult; F32.A Depression, unspecified; Z28.310 Unvaccinated for COVID-19; I25.10 Atherosclerotic heart disease of native coronary artery without angina pectoris; I25.5 Ischemic cardiomyopathy; F12.90 Cannabis use, unspecified, uncomplicated; E78.5 Hyperlipidemia, unspecified; I25.2 Old myocardial infarction; F41.9 Anxiety disorder, unspecified; Z87.891 Personal history of nicotine dependence; Z91.148 Patient's other noncompliance with medication regimen for other reason; Z86.73 Personal history of transient ischemic attack (TIA), and cerebral infarction without residual deficits; Z71.3 Dietary counseling and surveillance; Z91.199 Patient's noncompliance with other medical treatment and regimen due to unspecified reason; Z56.0 Unemployment, unspecified
CPT/HCPCS: 71045; 80048; 80053; 80061; 81003; 83735; 84484; 85025; 85027; 85610; 85730; 92973; 92978; 93005; 93306; 93459; 96365; 99291

== ENCOUNTER 2024-08-15 11:27 | Emergency (ER) | payer OTHER ==
--- NOTE | 2024-08-15 12:22 | ED ---
General Adult HPI - General Chief complaint: Allergic Reaction Stated complaint: Allergic Reaction Time Seen by Provider: 08/15/24 12:14 Source: patient, RN notes reviewed Mode of arrival: ambulatory Limitations: no limitations - History of Present Illness Initial comments: Patient is a 58-year-old male presenting to the emergency department with concer n for lip swelling. Patient noticed this when he woke up at 8 AM. No history of similar symptoms previously. Symptoms have been persistent. Patient took Benadryl without much improvement. Swelling of his left upper and lower lip. No tongue or throat swelling. No dyspnea. No rash. No history of similar symptoms previously. Patient is on lisinopril for blood pressure. - Related Data Previous Rx's Medication Instructions Recorded Aspirin 81 mg PO DAILY #90 tab 02/19/24 Atorvastatin [Lipitor] 80 mg PO HS #90 tab 02/19/24 Clopidogrel [Plavix] 75 mg PO DAILY #90 tablet 02/19/24 Famotidine [Pepcid] 20 mg PO DAILY #30 tablet 02/19/24 Isosorbide Mononitrate ER [Imdur] 30 mg PO DAILY #90 tab 02/19/24 Metoprolol Tartrate [Lopressor] 25 mg PO BID #180 tab 02/19/24 Nitroglycerin Sl Tabs [Nitrostat] 0.4 mg SUBLINGUAL Q5M PRN #100 tab 02/19/24 Spironolactone [Aldactone] 25 mg PO DAILY #90 tab 02/19/24 lisinopriL [Zestril] 20 mg PO DAILY #90 tab 02/19/24 predniSONE [Deltasone] 20 mg PO BID #8 tab 08/15/24 Allergies Allergy/AdvReac Type Severity Reaction Status Date / Time No Known Allergies Allergy Verified 08/15/24 11:58 Review of Systems ROS Statement: Those systems with pertinent positive or pertinent negative responses have been documented in the HPI. ROS Other: All systems not noted in ROS Statement are negative. Constitutional: Denies: fever Eyes: Denies: eye pain ENT: Reports: as per HPI. Denies: ear pain Respiratory: Denies: cough, dyspnea Past Medical History Past Medical History: Hyperlipidemia, Hypertension, Myocardial Infarction ([place]) Last Myocardial Infarction Date:: 02/16/2024 History of Any Multi-Drug Resistant Organisms: None Reported Additional Past Surgical History / Comment(s): Quad bipass in 2009 Past Anesthesia/Blood Transfusion Reactions: No Reported Reaction Past Psychological History: Anxiety, Depression Smoking Status: Former smoker Past Alcohol Use History: None Reported Past Drug Use History: Marijuana - Past Family History Father Family Medical History: Myocardial Infarction ([place]) Mother History Unknown: Yes General Exam Limitations: no limitations General appearance: alert, in no apparent distress Head exam: Present: normocephalic Eye exam: Present: normal appearance, PERRL ENT exam: Present: other (Moderate angioedema of the left upper and lower lip. No angioedema of the tongue or pharynx.) Neck exam: Present: normal inspection Respiratory exam: Present: normal lung sounds bilaterally. Absent: respiratory distress, wheezes Cardiovascular Exam: Present: regular rate, normal rhythm GI/Abdominal exam: Present: soft. Absent: tenderness Extremities exam: Present: normal inspection Neurological exam: Present: alert Psychiatric exam: Present: normal affect, normal mood Skin exam: Present: normal color. Absent: rash Course Vital Signs 08/15/24 11:54 Temperature 97.9 F Pulse Rate 60 Respiratory 18 Rate Blood Pressure 166/114 O2 Sat by Pulse 97 Oximetry Medical Decision Making - Medical Decision Making Was pt. sent in by a medical professional or institution (, PA, MOTTLER MACHINE FEEDER, urgent care, hospital, or shelter...) When possible be specific @ -No Did you speak to anyone other than the patient for history (EMS, parent, family, police, friend...)? What history was obtained from this source @ -No Did you review nursing and triage notes (agree or disagree)? Why? @ -I reviewed and agree with nursing and triage notes Were old charts reviewed (outside hosp., previous admission, EMS record, old EKG, old radiological studies, urgent care reports/EKG's, shelter records)? Report findings @ -No old charts were reviewed Differential Diagnosis (chest pain, altered mental status, abdominal pain women, abdominal pain men, vaginal bleeding, weakness, fever, dyspnea, syncope, headache, dizziness, GI bleed, back pain, seizure, CVA, palpatations, mental health, musculoskeletal)? @ -Differential Dyspnea: Coronary syndrome, arrhythmia, tamponade, asthma, COPD, pulmonary embolism, pneumonia, pneumothorax, pulmonary effusion, anaphylaxis, diabetic ketoacidosis, flailed chest, pulmonary contusion, diaphragmatic rupture, anemia, neuromuscular, this is not meant to be an all-inclusive list. EKG interpreted by me (3pts min.). @ -As above X-rays interpreted by me (1pt min.). @ -None done CT interpreted by me (1pt min.). @ -None done U/S interpreted by me (1pt. min.). @ -None done What testing was considered but not performed or refused? (CT, X-rays, U/S, labs)? Why? @ -None What meds were considered but not given or refused? Why? @ -Considered antihistamine however patient took Benadryl 2 hours ago Did you discuss the management of the patient with other professionals (professionals i.e. , PA, MOTTLER MACHINE FEEDER, lab, RT, psych nurse, social welfare administrator, belt buckle maker, teacher, police liaison officer, caseworker)? Give summary @ -No Was smoking cessation discussed for >3mins.? @ -No Was critical care preformed (if so, how long)? @ -No Were there social determinants of health that impacted care today? How? (Homelessness, low income, unemployed, alcoholism, drug addiction, transportation, low edu. Level, literacy, decrease access to med. care, skilled nursing, re hab)? @ -No Was there de-escalation of care discussed even if they declined (Discuss DNR or withdrawal of care, Hospice)? DNR status @ -No What co-morbidities impacted this encounter? (DM, HTN, Smoking, COPD, CAD, Cancer, CVA, ARF, Chemo, Hep., AIDS, mental health diagnosis, sleep apnea, morbid obesity)? @ -None Was patient admitted / discharged? Hospital course, mention meds given and route, prescriptions, significant lab abnormalities, going to OR and other pertinent info. @ -Patient presents with angioedema, persistent for over 4 hours. Patient will be provided medication and discharge with follow-up. Patient instructed to hold lisinopril and has an appointment with his primary care physician already on Saturday that he will keep. Undiagnosed new problem with uncertain prognosis? @ -No Drug Therapy requiring intensive monitoring for toxicity (Heparin, Nitro, Insulin, Cardizem)? @ -No Were any procedures done? @ -No Diagnosis/symptom? @ -Angioedema Acute, or Chronic, or Acute on Chronic? @ -Acute Uncomplicated (without systemic symptoms) or Complicated (systemic symptoms)? @ -Default Side effects of treatment? @ -No Exacerbation, Progression, or Severe Exacerbation? @ -No Poses a threat to life or bodily function? How? (Chest pain, [place], [place], pneumonia, PE, COPD, DKA, ARF, appy, cholecystitis, CVA, Diverticulitis, Homicidal, Suicidal, threat to staff... and all critical care pts) @ -Threat for respiratory compromise Disposition Clinical Impression: Angioedema Disposition: HOME SELF-CARE Condition: Stable Instructions (If sedation given, give patient instructions): Angioedema (ED) Additional Instructions: Discontinue lisinopril immediately. Prescription for steroids sent to pharmacy. Continue nxlu-kov-cxhirnt antihistamine such as Benadryl, Claritin or Jody. Follow-up with your doctor Saturday as planned. Return for difficulty breathing, swelling of the throat, swelling of the tongue, worsening symptoms or other concerns. Prescriptions: predniSONE [Deltasone] 20 mg PO BID #8 tab Is patient prescribed a controlled substance at d/c from ED?: No Referrals: Virginia Ann MD [Primary Care Provider] - 1-2 days Time of Disposition: 12:22
[2024-08-15] MEDS: predniSONE 50 MG TAB PO STA (12:53)
[2024-08-15 12:57] VITALS: BP 143/90; PULSE 61; RESP 16; TEMP 98.2
== END 2024-08-15 12:58 | disposition home or self-care (01) ==
LOC: EC 11:27
CPT/HCPCS: 99283

== ENCOUNTER 2024-09-04 16:13 | Emergency (ER) | payer OTHER ==
--- NOTE | 2024-09-04 16:22 | ED ---
Chest Pain HPI - General Stated Complaint: Chest Pain Time Seen by Provider: 09/04/24 16:16 Source: RN notes reviewed, old records reviewed Limitations: no limitations - History of Present Illness Initial Comments: This is a 58-year-old male to the ER for evaluation. Patient has recent coronary artery bypass grafting surgery with recent stents placed about 4 months ago, history of significant CAD coming in for chest pain today. This occurred during a fight with his family significant anxious anxiety provoking event. Patient feels improved here in the ER without chest pain MD Complaint: chest pain -: hour(s) Onset: during rest, during exertion Pain Location: left chest Pain Radiation: none Severity: moderate Severity scale (1-10): 4 Quality: aching Consistency: now resolved Improves With: nothing Worsens With: nothing Context: other (Patient was involved in anxiety provoking argument) Anginal Symptoms: sense of impending doom Other Symptoms: palpitations Treatments Prior to Arrival: none - Related Data Home Medications Medication Instructions Recorded Confirmed Citalopram Hydrobromide [CeleXA] 20 mg PO DAILY 09/04/24 09/04/24 Losartan [Cozaar] 50 mg PO DAILY 09/04/24 09/04/24 Vitamin D (Unknown Dose) 1 cap PO DAILY 09/04/24 09/04/24 Previous Rx's Medication Instructions Recorded Aspirin 81 mg PO DAILY #90 tab 02/19/24 Atorvastatin [Lipitor] 80 mg PO HS #90 tab 02/19/24 Clopidogrel [Plavix] 75 mg PO DAILY #90 tablet 02/19/24 Isosorbide Mononitrate ER [Imdur] 30 mg PO DAILY #90 tab 02/19/24 Metoprolol Tartrate [Lopressor] 25 mg PO BID #180 tab 02/19/24 Nitroglycerin Sl Tabs [Nitrostat] 0.4 mg SUBLINGUAL Q5M PRN #100 tab 02/19/24 Spironolactone [Aldactone] 25 mg PO DAILY #90 tab 02/19/24 Allergies Allergy/AdvReac Type Severity Reaction Status Date / Time lisinopril Allergy Anaphylaxis Verified 09/04/24 18:29 Review of Systems ROS Statement: Those systems with pertinent positive or pertinent negative responses have been documented in the HPI. ROS Other: All systems not noted in ROS Statement are negative. EKG Findings - EKG Comments: EKG Findings:: EKG is sinus 77 [place] 152 QRS 108 QTc 411 - EKG Results: EKG: interpreted by DENIZ Past Medical History Past Medical History: Hyperlipidemia, Hypertension, Myocardial Infarction ([place]) Last Myocardial Infarction Date:: 02/16/2024 History of Any Multi-Drug Resistant Organisms: None Reported Additional Past Surgical History / Comment(s): Quad bipass in 2008 Past Anesthesia/Blood Transfusion Reactions: No Reported Reaction Past Psychological History: Anxiety, Depression Smoking Status: Former smoker Past Alcohol Use History: None Reported Past Drug Use History: Marijuana - Past Family History Father Family Medical History: Myocardial Infarction ([place]) Mother History Unknown: Yes General Exam General appearance: anxious Head exam: Present: atraumatic, normocephalic, normal inspection Eye exam: Present: normal appearance, PERRL, EOMI. Absent: scleral icterus, conjunctival injection, periorbital swelling ENT exam: Present: normal exam, mucous membranes moist Neck exam: Present: normal inspection. Absent: tenderness, meningismus, lymphadenopathy Respiratory exam: Present: normal lung sounds bilaterally. Absent: respiratory distress, wheezes, rales, rhonchi, stridor Cardiovascular Exam: Present: regular rate, normal rhythm, normal heart sounds. Absent: systolic murmur, diastolic murmur, rubs, gallop, clicks GI/Abdominal exam: Present: soft, normal bowel sounds. Absent: distended, tenderness, guarding, rebound, rigid Extremities exam: Present: normal inspection, full ROM, normal capillary refill. Absent: tenderness, pedal edema, joint swelling, calf tenderness Back exam: Present: normal inspection Neurological exam: Present: alert, oriented X3, CN II-XII intact Psychiatric exam: Present: normal affect, normal mood Skin exam: Present: warm, dry, intact, normal color. Absent: rash Course Vital Signs 09/04/24 09/04/24 09/04/24 16:21 16:24 16:39 Temperature 98.4 F Pulse Rate 80 76 Respiratory 20 20 20 Rate Blood Pressure 132/88 132/88 O2 Sat by Pulse 99 99 Oximetry 09/04/24 09/04/24 09/04/24 17:19 18:00 19:22 Temperature Pulse Rate 78 84 61 Respiratory 20 16 18 Rate Blood Pressure 113/77 113/68 113/75 O2 Sat by Pulse 94 L 96 98 Oximetry - Reevaluation(s) Reevaluation #1: 09/04/24 18:03 Medical records reviewed Reevaluation #2: 09/04/24 18:03 Patient remains without chest pain Reevaluation #3: 09/04/24 18:03 Patient informed of results questions answered Reevaluation #4: 09/04/24 18:04 Was pt. sent in by a medical professional or institution (, TERRENCE, [employer], urgent care, hospital, or assisted...) When possible be specific @ -no Did you speak to anyone other than the patient for history (EMS, parent, family, police, friend...)? What history was obtained from this source @ -no Did you review nursing and triage notes (agree or disagree)? Why? @ -agree Are old charts reviewed (outside hosp., previous admission, EMS record, old EKG, old radiological studies, urgent care reports/EKG's, assisted records)? Report findings @ -yes Differential Diagnosis (chest pain, altered mental status, abdominal pain women, abdominal pain men, vaginal bleeding, weakness, fever, dyspnea, syncope, headache, dizziness, GI bleed, back pain, seizure, CVA, palpatations, mental health, musculoskeletal)? @ -prior EKG interpreted by me (3pts min.). @ -yes X-rays interpreted by me (1pt min.). @ -yes negative for acute disease CT interpreted by me (1pt min.). @ -no U/S interpreted by me (1pt. min.). @ -no What testing was considered but not performed or refused? (CT, X-rays, U/S, labs)? Why? @ -none What meds were considered but not given or refused? Why? @ -none Did you discuss the management of the patient with other professionals (professionals i.e. TERRENCE Dumas, [employer], lab, RT, psych nurse, perinatal social worker, bankruptcy assistant, teacher, law enforcement officer, patient case coordinator)? Give summary @ -no Was smoking cessation discussed for >3mins.? @ -no Was critical care preformed (if so, how long)? @ -no Were there social determinants of health that impacted care today? How? (Homelessness, low income, unemployed, alcoholism, drug addiction, transportation, low edu. Level, literacy, decrease access to med. care, longterm, rehab)? @ -none Was there de-escalation of care discussed even if they declined (Discuss DNR or withdrawal of care, Hospice)? DNR status @ -no What co-morbidities impacted this encounter? (DM, HTN, Smoking, COPD, CAD, Ca ncer, CVA, ARF, Chemo, Hep., AIDS, mental health diagnosis, sleep apnea, morbid obesity)? @ -none Was patient admitted / discharged? Hospital course, mention meds given and route, prescriptions, significant lab abnormalities, going to OR and other pertinent info. @ - Undiagnosed new problem with uncertain prognosis? @ -no Drug Therapy requiring intensive monitoring for toxicity (Heparin, Nitro, Insulin, Cardizem)? @ -no Were any procedures done? @ -no Diagnosis/symptom? @ - Acute, or Chronic, or Acute on Chronic? @ -Acute Uncomplicated (without systemic symptoms) or Complicated (systemic symptoms)? @ -Complicated Side effects of treatment? @ -no Exacerbation, Progression, or Severe Exacerbation? @ -exacerbation Poses a threat to life or bodily function? How? (Chest pain, USA, [place], pneumonia, PE, COPD, DKA, ARF, appy, cholecystitis, CVA, Diverticulitis, Homicidal, Suicidal, threat to staff... and all critical care pts) @ -yes Reevaluation #5: Differential Chest Pain: Stable Angina, Unstable Angina, STEMI, NSTEMI Aortic Dissection, Pneumothorax, Musculoskeletal, Esophageal Spasm GERD, Cholecystitis, Pancreatitis, Zoster, this is not meant to be an all-inclusive list. Chest Pain MDM - MDM 58 male with stress and anxiety inducing chest pain. Patient has troponin negative x 2 and can be discharged home Disposition Referrals: Virginia Ann MD [Primary Care Provider] - 1-2 days
[2024-09-04] MEDS: LORazepam 2 MG/ML INJ IV STA (16:36)
[2024-09-04 16:45] LABS: Basophils % (A) 0 %; Eosinophils % (A) 1 %; HCT 41.6 % (39.0-53.0); HGB 14.1 gm/dL (13.0-17.5); Lymphocytes # (A) 1.9 k/uL (1.0-4.8); Lymphocytes % (A) 25 %; MCH 33.8 pg (25.0-35.0); MCHC 33.9 g/dL (31.0-37.0); MCV 99.7 fL (80.0-100.0); Mean Platelet Volume 7.5; Monocytes # (A) 0.3 k/uL (0-1.0); Monocytes % (A) 4 %; Neutrophils # (A) 5.3 k/uL (1.3-7.7); Neutrophils % (A) 68 %; Platelet Count 235 k/uL (150-450); RBC 4.17 m/uL (4.30-5.90); RDW 12.2 % (11.5-15.5); WBC 7.8 k/uL (3.8-10.6)
[2024-09-04 16:59] LABS: ALT 24 U/L (4-49); AST 29 U/L (17-59); African American GFR (CKD) 86 (>60 ml/min/1.73 sqM); Albumin 3.7 g/dL (3.5-5.0); Alkaline Phosphatase 82 U/L (38-126); Anion Gap 8 mmol/L; Blood Urea Nitrogen 24 mg/dL (9-20); Calcium 8.9 mg/dL (8.4-10.2); Carbon Dioxide 21 mmol/L (22-30); Chloride 108 mmol/L (98-107); Glucose 102 mg/dL (74-99); Lipase 137 U/L (23-300); Magnesium 1.6 mg/dL (1.6-2.3); Non-African American GFR(CKD) 74 (>60 ml/min/1.73 sqM); Potassium 4.2 mmol/L (3.5-5.1); Sodium 137 mmol/L (137-145); Total Bilirubin 1.1 mg/dL (0.2-1.3)
[2024-09-04 17:06] LABS: NT-Pro-B-Type Natriuretic Pept 45 pg/mL
--- NOTE | 2024-09-04 17:09 | XR ---
EXAMINATION TYPE: XR chest 1V portable DATE OF EXAM: 09/04/2024 COMPARISON: 02/16/2024 INDICATION: Chest pain, short of breath TECHNIQUE: Single frontal view of the chest is obtained. FINDINGS: The heart size is normal. Sternotomy wires are in the midline. The pulmonary vasculature is normal. The lungs are clear. IMPRESSION: 1. No acute pulmonary process. [facility], Workstation: [facility], 09/04/2024 5:07 PM
[2024-09-04 17:13] LABS: Partial Thromboplastin Time 23.9 sec (22.0-30.0); Prothrombin Time 10.8 sec (10.0-12.5)
[2024-09-04 19:23] VITALS: RESP 18
[2024-09-04 20:13] VITALS: BP 112/73; PULSE 87; TEMP 97.7
== END 2024-09-04 20:11 | disposition home or self-care (01) ==
LOC: EC 16:13
CPT/HCPCS: 36415; 71045; 80053; 83690; 83735; 83880; 84484; 85025; 85610; 85730; 93005; 96374; 99285

== ENCOUNTER 2025-01-28 02:34 | Emergency (ER) | payer OTHER ==
[2025-01-28 02:41] VITALS: TEMP 97.6
--- NOTE | 2025-01-28 03:31 | ED ---
General Adult HPI - General Chief complaint: Overdose Stated complaint: Accidental Overdose Time Seen by Provider: 01/28/25 02:53 Source: patient, EMS Mode of arrival: EMS Limitations: no limitations - History of Present Illness Initial comments: Patient is a 59-year-old male past medical history CAD presenting today for accidental overdose. Patient states he is standing at his brother's house because brother selling his house and is currently in [place]. He had a headache tonight so he picked up a bottle of ibuprofen and took 4 tablets. He noticed that the bottle said "capsules" and when he looked in the bottle did not appear to have capsules and it but a different type of pill. He looked up the pill online and found out that it was 100 mg trazodone. He did feel sleepy so called [facility] to bring him to emergency room. Endorse associated lightheadedness. He denies additional symptoms. He denies attempting to harm or kill himself. - Related Data Home Medications Medication Instructions Recorded Confirmed Citalopram Hydrobromide [CeleXA] 20 mg PO DAILY 09/04/24 09/04/24 Losartan [Cozaar] 50 mg PO DAILY 09/04/24 09/04/24 Vitamin D (Unknown Dose) 1 cap PO DAILY 09/04/24 09/04/24 Previous Rx's Medication Instructions Recorded Aspirin 81 mg PO DAILY #90 tab 02/19/24 Atorvastatin [Lipitor] 80 mg PO HS #90 tab 02/19/24 Clopidogrel [Plavix] 75 mg PO DAILY #90 tablet 02/19/24 Isosorbide Mononitrate ER [Imdur] 30 mg PO DAILY #90 tab 02/19/24 Metoprolol Tartrate [Lopressor] 25 mg PO BID #180 tab 02/19/24 Nitroglycerin Sl Tabs [Nitrostat] 0.4 mg SUBLINGUAL Q5M PRN #100 tab 02/19/24 Spironolactone [Aldactone] 25 mg PO DAILY #90 tab 02/19/24 Allergies Allergy/AdvReac Type Severity Reaction Status Date / Time lisinopril Allergy Anaphylaxis Verified 01/28/25 02:38 Review of Systems ROS Statement: Those systems with pertinent positive or pertinent negative responses have been documented in the HPI. ROS Other: All systems not noted in ROS Statement are negative. Past Medical History Past Medical History: Hyperlipidemia, Hypertension, Myocardial Infarction ([place]) Last Myocardial Infarction Date:: 02/16/2024 History of Any Multi-Drug Resistant Organisms: None Reported Past Surgical History: Heart Catheterization, Heart Catheterization With Stent Additional Past Surgical History / Comment(s): Quad bipass in 2009 Past Anesthesia/Blood Transfusion Reactions: No Reported Reaction Past Psychological History: Anxiety, Depression Smoking Status: Former smoker Past Alcohol Use History: None Reported Past Drug Use History: Marijuana - Past Family History Father Family Medical History: Myocardial Infarction ([place]) Mother History Unknown: Yes General Exam - General Exam Comments Initial Comments: PE: CONSTITUTIONAL: [no apparent distress, well appearing] SKIN: [warm, dry, no jaundice, hives or petechiae] EYES:[ pupils are equally round, extraocular movements intact without nystagmus, clear conjunctiva, non-icteric sclera] HENT: [normocephalic, atraumatic, moist mucus membranes, oropharynx clear without exudates] NECK: , [Full range of motion, normal appearance] PULMONARY: [clear to auscultation without wheezes, rhonchi, or rales, normal excursion, no accessory muscle use and no stridor] CARDIOVASCULAR:[ regular rate, rhythm, normal S1 and S2. No appreciated murmurs, rubs or gallops. Strong radial pulses with intact distal perfusion. No lower extremity edema] GASTROINTESTINAL: [soft, active bowel sounds throughout, non-tender, non- distended, no palpable masses, no rebound or guarding. No hepatosplenomegaly] GENITOURINARY: MUSCULOSKELETAL: [Extremities have no gross deformity, no edema, redness, or sw elling. No calf swelling ] NEUROLOGIC: [_a/o x 3, GCS 15, normal mentation and speech. Moves all ext remities x 4 without motor or sensory deficit] PSYCHIATRIC:[ _normal mood and affect, thought process is clear and linear] Limitations: no limitations Course Vital Signs 01/28/25 02:38 Temperature 97.6 F Pulse Rate 66 Respiratory 15 Rate Blood Pressure 120/90 O2 Sat by Pulse 94 L Oximetry EKG Findings - EKG Comments: EKG Findings:: Sinus rhythm, rate 63 bpm ME interval 172 ms QT/QTc 333/340 ms, normal axis, no ST elevations or depressions, no arrhythmia no STEMI Medical Decision Making - Medical Decision Making Was pt. sent in by a medical professional or institution (TERRENCE Dumas, [employer], urgent care, hospital, or penitentiary...) When possible be specific @ -[No] Did you speak to anyone other than the patient for history (EMS, parent, family, police, friend...)? What history was obtained from this source @ -[No] Did you review nursing and triage notes (agree or disagree)? Why? @ -[I reviewed nursing and triage notes] Were old charts reviewed (outside hosp., previous admission, EMS record, old EKG, old radiological studies, urgent care reports/EKG's, penitentiary records)? Report findings @ -[Medical records reviewed]Patient presented for chest pain the emergency department 09/04/2024 was discharged home after 2 negative troponins Differential Diagnosis (chest pain, altered mental status, abdominal pain women, abdominal pain men, vaginal bleeding, weakness, fever, dyspnea, syncope, headache, dizziness, GI bleed, back pain, seizure, CVA, palpatations, mental health, musculoskeletal)? @ -[not applicable] EKG interpreted by me (3pts min.). @ -[As above] X-rays interpreted by me (1pt min.). @ -[None done] CT interpreted by me (1pt min.). @ -[None done] U/S interpreted by me (1pt. min.). @ -[None done] What testing was considered but not performed or refused? (CT, X-rays, U/S, labs)? Why? @ -[None] What meds were considered but not given or refused? Why? @ -[None] Did you discuss the management of the patient with other professionals (professionals i.e. TERRENCE Dumas, [employer], lab, RT, psych nurse, addiction social worker, regional environmental manager, teacher, senior grants officer, case managers)? Give summary @ -[No] Was smoking cessation discussed for >3mins.? @ -[No] Was critical care preformed (if so, how long)? @ -[No] Were there social determinants of health that impacted care today? How? (Homelessness, low income, unemployed, alcoholism, drug addiction, transportation, low edu. Level, literacy, decrease access to med. care, [facility], rehab)? @ -[No] Was there de-escalation of care discussed even if they declined (Discuss DNR or withdrawal of care, Hospice)? @ -[No] What co-morbidities impacted this encounter? (DM, HTN, Smoking, COPD, CAD, Cancer, CVA, ARF, Chemo, Hep., AIDS, mental health diagnosis, sleep apnea, morbid obesity)? @ -[None] Was patient admitted / discharged? Hospital course, mention meds given and route, prescriptions, significant lab abnormalities, going to OR and other pert inent info. @ -[hospital course] this is a pleasant 59-year-old gentleman presenting today for accidental trazodone overdose of 400 mg. Poison control was called by RNJudy, who stated that had patient called them they would have had him stay home and told him he did not need emergency department mL evaluation. Patient resting comfortably on my assessment. Vital signs in acceptable limits. He currently denies symptoms aside from drowsiness. I did confirm that the patient ingested are 100 mg trazodone. Labs have been drawn prior to my assessment we will obtain basic labs in addition to salicylate and Tylenol levels. Dissipate discharge. Labs and imaging reviewed. Grossly within normal limits. Abnormal values not concerning for acute pathology related to presenting complaint. Undiagnosed new problem with uncertain prognosis? @ -[No] Drug Therapy requiring intensive monitoring for toxicity (Heparin, Nitro, Insulin, Cardizem)? @ -[No] Were any procedures done? @ -[No] Diagnosis/symptom? @ -[default] Acute, or Chronic, or Acute on Chronic? @ -[default] Uncomplicated (without systemic symptoms) or Complicated (systemic symptoms)? @ -[default] Side effects of treatment? @ -[No] Exacerbation, Progression, or Severe Exacerbation? @ -[No] Poses a threat to life or bodily function? How? (Chest pain, [place], [place], pneumonia, PE, COPD, DKA, ARF, appy, cholecystitis, CVA, Diverticulitis, Homicidal, Suicidal, threat to staff... and all critical care pts) @ -[No] - Lab Data Result diagrams: 01/28/25 03:21 01/28/25 03:21 Lab Results 01/28/25 01/28/25 01/28/25 Range/Units 03:21 03:21 04:30 WBC 8.1 (3.8-10.6) k/uL RBC 4.69 (4.30-5.90) m/uL Hgb 15.1 (13.0-17.5) gm/dL Hct 46.6 (39.0-53.0) % MCV 99.4 (80.0-100.0) fL MCH 32.1 (25.0-35.0) pg MCHC 32.3 (31.0-37.0) g/dL RDW 12.7 (11.5-15.5) % Plt Count 206 (150-450) k/uL MPV 7.7 Neutrophils % 65 % Lymphocytes % 26 % Monocytes % 5 % Eosinophils % 1 % Basophils % 0 % Neutrophils # 5.3 (1.3-7.7) k/uL Lymphocytes # 2.1 (1.0-4.8) k/uL Monocytes # 0.4 (0-1.0) k/uL Eosinophils # 0.1 (0-0.7) k/uL Basophils # 0.0 (0-0.2) k/uL Sodium 133 L (137-145) mmol/L Potassium 3.6 (3.5-5.1) mmol/L Chloride 104 (98-107) mmol/L Carbon Dioxide 19 L (22-30) mmol/L Anion Gap 10 mmol/L BUN 25 H (9-20) mg/dL Creatinine 0.80 (0.66-1.25) mg/dL Est GFR (CKD-EPI)AfAm >90 (>60 ml/min/1.73 sqM) Est GFR (CKD-EPI)NonAf >90 (>60 ml/min/1.73 sqM) Glucose 108 H (74-99) mg/dL Calcium 9.0 (8.4-10.2) mg/dL Total Bilirubin 0.8 (0.2-1.3) mg/dL AST 22 (17-59) U/L ALT 18 (4-49) U/L Alkaline Phosphatase 98 (38-126) U/L Total Protein 6.4 (6.3-8.2) g/dL Albumin 3.8 (3.5-5.0) g/dL Salicylates <1.0 mg/dL Urine Opiates Screen Not Detected (NotDetected) Ur Oxycodone Screen Not Detected (NotDetected) Urine Methadone Screen Not Detected (NotDetected) Acetaminophen <10.0 ug/mL Ur Barbiturates Screen Not Detected (NotDetected) U Tricyclic Antidepress Not Detected (NotDetected) Ur Phencyclidine Scrn Not Detected (NotDetected) Ur Amphetamines Screen Not Detected (NotDetected) U Methamphetamines Scrn Not Detected (NotDetected) U Benzodiazepines Scrn Not Detected (NotDetected) Urine Cocaine Screen Not Detected (NotDetected) U Marijuana (THC) Screen Detected H (NotDetected) Serum Alcohol <10 mg/dL Disposition Clinical Impression: Accidental drug overdose Disposition: HOME SELF-CARE Condition: Stable Instructions (If sedation given, give patient instructions): Adult Overdose (ED) Additional Instructions: Every disease is a spectrum and a small chance still exists that a serious con dition could develop, for this reason, please monitor yourself closely for new, changing or worsening symptoms, confusion, difficulty in breathing, chest pain, new numbness or weakness, fever, inability to tolerate/keep down fluids or your medications, inability to follow up with outpatient providers as instructed and should you experience these symptoms or should you have any further concerns for your wellbeing please return to the ED or call 911 immediately. PLEASE call your primary care physician as soon as possible to arrange / discuss plan for followup appointment. Appointment in the next 1-3 days is strongly encouraged if possible. PLEASE let us know here before you leave if there is anything further we can do to be of any assistance. Take care and feel Better! Is patient prescribed a controlled substance at d/c from ED?: No Referrals: Virginia Ann MD [Primary Care Provider] - 1-2 days
[2025-01-28 03:43] LABS: Basophils % (A) 0 %; Eosinophils # (A) 0.1 k/uL (0-0.7); Eosinophils % (A) 1 %; HCT 46.6 % (39.0-53.0); HGB 15.1 gm/dL (13.0-17.5); Lymphocytes # (A) 2.1 k/uL (1.0-4.8); Lymphocytes % (A) 26 %; MCH 32.1 pg (25.0-35.0); MCHC 32.3 g/dL (31.0-37.0); MCV 99.4 fL (80.0-100.0); Mean Platelet Volume 7.7; Monocytes # (A) 0.4 k/uL (0-1.0); Monocytes % (A) 5 %; Neutrophils # (A) 5.3 k/uL (1.3-7.7); Neutrophils % (A) 65 %; Platelet Count 206 k/uL (150-450); RBC 4.69 m/uL (4.30-5.90); RDW 12.7 % (11.5-15.5); WBC 8.1 k/uL (3.8-10.6)
[2025-01-28 04:32] LABS: ALT 18 U/L (4-49); AST 22 U/L (17-59); Acetaminophen <10.0 ug/mL; African American GFR (CKD) >90 (>60 ml/min/1.73 sqM); Albumin 3.8 g/dL (3.5-5.0); Alcohol <10 mg/dL; Alkaline Phosphatase 98 U/L (38-126); Anion Gap 10 mmol/L; Blood Urea Nitrogen 25 mg/dL (9-20); Carbon Dioxide 19 mmol/L (22-30); Chloride 104 mmol/L (98-107); Glucose 108 mg/dL (74-99); Non-African American GFR(CKD) >90 (>60 ml/min/1.73 sqM); Potassium 3.6 mmol/L (3.5-5.1); Salicylate <1.0 mg/dL; Sodium 133 mmol/L (137-145); Total Bilirubin 0.8 mg/dL (0.2-1.3); Total Protein 6.4 g/dL (6.3-8.2)
[2025-01-28 05:13] LABS: Amphetamine Screen,Urine Not Detected (NotDetected); Barbiturate Screen,Urine Not Detected (NotDetected); Benzodiazepines Screen,Urine Not Detected (NotDetected); Cocaine Screen,Urine Not Detected (NotDetected); Methadone Screen, Urine Not Detected (NotDetected); Opiate Screen,Urine Not Detected (NotDetected); Oxycodone Screen, Urine Not Detected (NotDetected); Phencyclidine Screen,Urine Not Detected (NotDetected); Tricyclic Antidepressant,Urine Not Detected (NotDetected); Urn Cannabinoid Scrn Detected (NotDetected)
[2025-01-28 06:05] VITALS: BP 112/88; PULSE 101; RESP 17
== END 2025-01-28 06:17 | disposition home or self-care (01) ==
LOC: EC 02:34
DX: T39.311A Poisoning by propionic acid derivatives, accidental (unintentional), initial encounter (principal); R51.9 Headache, unspecified; Z87.891 Personal history of nicotine dependence; Z88.8 Allergy status to other drugs, medicaments and biological substances
CPT/HCPCS: 36415; 93005; 80053; 85025; 80306; 80143; 80179; 99285; G0480; 80320